=== PATIENT | female | born 1975 ===

== ENCOUNTER → 2024-01-27 06:18 | Day surgery (SDC) | payer BC, SELFPAY | LOC: GI 06:18 | PROVIDERS: ATTENDING PHYSICIAN Internal Medicine Gastroenterology | DX: D12.5 Benign neoplasm of sigmoid colon (principal); R19.4 Change in bowel habit; R19.7 Diarrhea, unspecified; K22.89 Other specified disease of esophagus | CPT/HCPCS: 45385; 45380; 43239; 88305 ==